=== PATIENT | female | born 2000 | race Asian ===

== ENCOUNTER 2022-03-13 10:06 | Emergency (ER) | payer BC ==
[~2022-03-13] VITALS: Ht 162.6 cm; Wt 62.7 kg
[2022-03-13 10:24] VITALS: TEMP 98.2
[2022-03-13 11:48] LABS: COLLECTION METHOD CLEAN CATCH
[2022-03-13 11:53] LABS: PH 8 (5-8); SQUAMOUS EPITHELIAL 0-2 /hpf (0-10); URINE APPEARANCE Clear (CLEAR/HAZY); URINE BACTERIA None Seen /hpf (NONE SEEN); URINE BLOOD Negative (NEGATIVE); URINE COLOR Straw (YELLOW); URINE GLUCOSE Negative (NEGATIVE); URINE KETONE Negative (NEGATIVE); URINE NITRATE Negative (NEGATIVE); URINE PROTEIN(semi-quant) Negative (NEGATIVE); URINE RBC 0-2 /hpf (0-2); URINE UROBILINOGEN Negative (NEGATIVE); URINE WBC None Seen /hpf (0-2)
[2022-03-13] MEDS ORDERED: PREDNISONE50 MG PO (13:16)
[2022-03-13] MEDS ORDERED: VALTREX1 GM PO (13:16)
[2022-03-13 13:25] VITALS: BP 107/70; PULSE 74
[2022-03-15] MEDS ORDERED: PREDNISONE20 MG PO (08:09)
== END 2022-03-13 13:27 | disposition home or self-care (01) ==
LOC: COL.ER 10:06
PROVIDERS: Emergency Medicine
DX: G51.0 Bell's palsy (principal)
CPT/HCPCS: Q9967